=== PATIENT | female | born 1975 | race Caucasian/White ===

== ENCOUNTER 2017-07-30 17:22 | Observation (INO) ==
[2017-07-30] MEDS ORDERED: MORPHINE SULFATE 4 MG/ML SYRG IM ONE (18:06)
[2017-07-30] MEDS ORDERED: MORPHINE SULFATE 4 MG/ML SYRG ONE (18:08)
[2017-07-30 18:23] LABS: Hematocrit 47.6 % (37.0-47.0); Hemoglobin 15.5 gm/dL (12.5-16.0); Mean Cell Volume 94.4 fl (78-100); Mean Corpuscular Hemoglobin 30.8 pg (27-31); Mean Corpuscular Hgb Conc 32.6 g/dl (32-36); Mean Platelet Volume 9.8 fl (6.0-9.5); Neutrophil # 5.7 K/mm3 (1.3-6.0); Neutrophil % 51.3 % (42-75.0); Platelet Count 282 K/mm3 (150-450); Red Blood Count 5.04 M/mm3 (4.2-5.4); Red Cell Distribution Width 12.8 % (11.5-14.0)
[2017-07-30 18:34] LABS: Albumin * 3.4 gm/dl (3.4-5.0); Anion Gap 13.2 mmol/L (6.8-13.8); BUN/Creatinine Ratio 14.9 (9.0-21.6); Bilirubin, Total 0.4 mg/dL (0.0-1.1); Ca. Corrected For Albumin 9.1 mg/dL (8.4-10.2); Calcium * 8.9 mg/dL (7.9-10.9); Carbon Dioxide 28.7 mmol/L (24-32.6); Potassium 3.9 mmol/L (3.4-4.6); Total Protein 7.8 gm/dL (6.2-8.2)
[2017-07-30] MEDS ORDERED: VANCOMYCIN HCL 1 GM in DEXTROSE 5 % IN WATER 250 ML IV ONE ×2 (19:04)
--- NOTE | 2017-07-30 19:10 | ERNOTE ---
Lower Extremity HPI - Narrative Date of Service: 07/30/17 - General Lower Extremities Pain: foot: left Time Seen by Provider: 07/30/17 17:51 Source: patient Exam Limitations: no limitations - Immun/Allergies/Home Medications Immunizations: IMMUNIZATION HX Immunizations Up to Date Yes Allergies/Adverse Reactions: Allergies Allergy/AdvReac Type Severity Reaction Status Date / Time penicillin V Allergy Verified 07/30/17 17:43 promethazine [From Phenergan] Allergy Verified 07/30/17 17:43 Home Medications: HOME MEDICATIONS Esomeprazole Magnesium [Nexium] 40 mg PO DAILY 07/30/17 [Last Taken Unknown] - History of Present Illness Narrative: Patient presents to the ED with left foot pain and redness. 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 She has taken steroids in the past for this but has not taken any for some time. When this happens she gets bad cellulitis and with the increased pain and redness she feels it is infected. She tells me she normally gets admitted and needs Vancomycin as nothing else works. She thinks she may have been feverish. Occurred: other - 3 days Location of Incident: other - no injury Method of Injury: Reports: no apparent injury Loss of Consciousness: Reports: no loss of consciousness Modifying Factors - (Improves): Reports: other - nothing Modifying Factors - (Worsens): Reports: other - weight bearing Associated Symptoms: Denies: weakness Other Injuries: Reports: none Subsequent Symptoms: Denies: motor loss Prior Treament: Reports: similar symptoms before. Denies: recently seen Review of Systems - Review of Systems Constitutional: Present: chills Respiratory: Absent: shortness of breath Cardiology: Absent: chest pain Gastrointestinal/Abdominal: Absent: abdominal pain Skin: Present: no symptoms reported All Other Systems: All systems neg except as marked - Patient's Past Medical History Patient History - Medical: Arthritis, Bipolar, GERD Patient History - Cardiac/Respiratory: No pertinent hx Patient History - Cancer: No Hx of Cancer Patient History - Surgical Procedures: , T & A Patient History - Other: None - Social History Living Situations: home Psych History: Hx of Bipolar Disorder Alcohol Use: none Drug Use: none - Immunizations Immunizations Up to Date: Yes Physical Exam - Physical Exam General Appearance: Present: alert, no apparent distress Head Exam: Present: normal inspection Eye Exam: Normal inspection: bilateral, PERRL: bilateral Ears, Nose, Throat: Present: normal ENT inspection Neck: Present: normal inspection Respiratory: Present: no respiratory distress, normal breath sounds, lungs clear Cardiovascular/Chest: Present: regular rate, rhythm, normal peripheral pulses Gastrointestinal/Abdominal: Present: normal bowel sounds, nontender Extremity Exam: Present: normal range of motion, other - No DVT findings Neurological Exam: Present: alert, no motor/sensory deficits Skin Exam: Present: other - apparent pustular psoriasis left foot with secondary cellulitis. No suggestion of Nec Fasc clinically. No abscess to drain. There is warmth to the midfoot but the redness is mostly around the toes and medial foot, warmth extends beyond the area of redness. ED Progress - Results and Orders Patient's Lab Results:: I have reviewed the patient's lab results. - Vital Signs Patient's Vital Signs:: I have reviewed the patient's vital signs. Vital Signs: Vital Signs 07/30/17 07/30/17 17:35 18:10 Temperature 36.1 C L Pulse Rate 91 96 Respiratory 12 20 Rate Blood Pressure 135/70 159/83 O2 Sat by Pulse 97 97 Oximetry - X-Ray X-Ray #1 X-Ray: foot Interpretation: Interp. by me X-ray Comments: No real-time radiology reads. No acute process by my interpretation. - Progress/Reassessment Chief Complaint: Foot Injury/Pain Progress Note-Subjective: 07/30/17 19:30 Patient relates she has always needed to be admitted with Vanco for these events. I disucssed IV Vanco and outpatient management but she was most comfortable with being in the hospital. Given her elevated lactic acid, elevated WBC and elevated blood sugar with her history of infection requiring vanco I feel it is reasonable to place her in obs as the course of her illness is not clear at this time. D/W Rosio who will admit the patient obs and requested HGB A1C which was ordered. Departure Clinical Impression: Pustular psoriasis, Cellulitis, Elevated blood sugar - Departure Disposition: Still a patient Condition: Stable
--- NOTE | 2017-07-30 21:17 | HP ---
Chief Complaint - Chief Complaint Date of Service: 07/30/17 Time of Service: 21:16 Chief Complaint: Left foot pain,Tenderness and erythyma History of Present Illness: 42 years old female adm to the hospital with reports of chills, fever and pain to left foot. Pt stated when she got out her van today and stood on her left feet, it felt like she had many pins sticking her. The sole of her left feet and toes had diffused pustules psoriasis with cellulitis.Her foot with erythema around the toes, medial measuring machine tender and warm to touch, s/s began 3 days ago. 2 years ago she was diagnosed with pustular psoriasis, she was managed with injectable steriods every three months. However its been a year since she took any medications, she no longer have a PCP and has been driving [place] work. pt stated other treatment methods have been tried with exacerbation of pustular psoriasis and only In-pt use of vancomycin have worked for her in the past. Plan of care discussed with pt she verbalized understanding and agrees. - Patient's Past Medical History Patient History - Medical: Anxiety, Arthritis, Bipolar, Depression, Fibromyalgia , GERD, Other - Morbid obesity, PTSD, Patient History - Cardiac/Respiratory: No pertinent hx Patient History - Cancer: No Hx of Cancer Patient History - Surgical Procedures: , T & A Patient History - Other: None LMP (Calendar): 07/14/17 - Family History Father Family History - Medical: Diabetes Type 2 Family History - Cardiac/Respiratory: CVA/Stroke, Myocardial Infarction Family History - Cancer: No pertinent family hx Mother Family History - Medical: Diabetes Type 1 Family History - Cardiac/Respiratory: COPD, Hypertension Family History - Cancer: No pertinent family hx - Social History Living Situations: home Psych History: Psychiatric Hx, Hx of Bipolar Disorder Does anyone smoke in the home?: Yes Smoking Status: Current every day smoker Have you smoked in the past 12 months: Yes Do you dip or chew tobacco: No Patient requests Smoking Cessation Consult: Yes Initiate information on Smoking Cessation: Yes Alcohol Use: none Drug Use: none - Immunizations Immunizations Up to Date: Yes Review Of Systems (GEN) - Review of Systems Generalized/Overall Review: Present: Chills, Fever, Malaise EENTM: Present: No Symptoms Reported Respiratory: Present: No Symptoms Reported Cardiac: Present: No Symptoms Reported Abdominal: Present: No Symptoms Reported Genitourinary: Present: No Symptoms Reported Musculoskeletal: Present: No Symptoms Reported Neurological: Present: Parasthesia Skin: Present: Other - diffused putular psoriasis left foot, cellulitis Endocrine: Present: No Symptoms Reported Immunizations: IMMUNIZATION HX Immunizations Up to Date Yes Allergies/Adverse Reactions: Allergies Allergy/AdvReac Type Severity Reaction Status Date / Time penicillin V Allergy Verified 07/30/17 17:43 promethazine [From Phenergan] Allergy Verified 07/30/17 17:43 Home Medications: HOME MEDICATIONS Esomeprazole Magnesium [Nexium] 40 mg PO DAILY 07/30/17 [Last Taken 07/29/17 2100] metFORMIN HCL [Metformin HCl ER] 500 mg PO DAILY 07/30/17 [Last Taken Unknown] Exam - Exam Vital Signs: Vital Signs - Last Taken Temp 36.6 C 07/30/17 19:42 Pulse 84 07/30/17 19:42 Resp 20 07/30/17 19:42 BP 156/71 07/30/17 19:42 Pulse Ox 95 07/30/17 19:42 Constitutional: Present: Alert, Oriented x3, Cooperative, Well developed, No distress, Morbidly obese ENT Exam: Present: hearing grossly normal Eye Exam: bilateral eye: normal inspection Neck: Present: non-tender, full range of motion, supple Back Exam: Present: normal inspection Breasts: Present: Exam deferred Respiratory: Present: chest non-tender, lungs clear, no respiratory distress, decreased breath sounds Cardiovascular/Chest: Present: normal peripheral pulses, regular rate, rhythm, no chest tenderness, no edema, no gallop Peripheral Pulses: dorsalis-pedis (R): 2+, dorsalis-pedis (L): 2+ Abdomen: Present: Normal bowel sounds, soft, nontender, nondistended /Rectal: Present: Exam deferred Extremity: Present: normal range of motion, non-tender, normal inspection, no pedal edema Skin Exam: Present: warm/dry, other - putular psoriasis, toes and medial foot cellulitis Neurologic: Present: alert, oriented x 3 Appearance: Present: appropriate appearance Eye contact: Present: cooperative, good eye contact Thoughts: Present: normal thought pattern, no apparent hallucination Diagnostic Studies: Laboratory Results WBC 11.0 K/mm3 (4.0-10.5) H 07/30/17 18: RBC 5.04 M/mm3 (4.2-5.4) 07/30/17 18: Hgb 15.5 gm/dL (12.5-16.0) 07/30/17 18: Hct 47.6 % (37.0-47.0) H 07/30/17 18: MCV 94.4 fl (78-100) 07/30/17 18: MCH 30.8 pg (27-31) 07/30/17: MCHC 32.6 g/dl (32-36) 07/30/17: RDW 12.8 % (11.5-14.0) 07/30/17: Plt Count 282 K/mm3 (150-450) 07/30/17: MPV 9.8 fl (6.0-9.5) H 07/30/17 18: Immature Gran % (Auto) 0.40 % (0.001-0.429) 07/30/17: Immature Gran # (Auto) 0.04 K/mm3 (0.000-0.0310) H 07/30/17 18: Neutrophils % 51.3 % (42-75.0) 07/30/17: Lymphocytes % 40.6 % (20-51) 07/30/17: Monocytes % 5.1 % (0.0-9) 07/30/17: Eosinophils % 1.9 % (0.0-3.0) 07/30/17: Basophils % 0.7 % (0.0-1.0) 07/30/17: Nucleated RBC % 0.0 k/mm3 (0-1) 07/30/17 18: Neutrophils # 5.7 K/mm3 (1.3-6.0) 07/30/17 18: Lymphocytes # 4.47 k/mm3 (1.5-3.5) H 07/30/17 18: Monocytes # 0.6 k/mm3 (0.0-1.0) 07/30/17 18: Eosinophils # 0.2 k/mm3 (0.0-0.7) 07/30/17: Absolute Basophils 0.1 k/mm3 (0.0-0.1) 07/30/17 18: Sodium 139 mmol/L (132-142) 07/30/17 18: Plasma Sodium 141 mmol/L (130-142) 07/30/17 18: Potassium 3.9 mmol/L (3.4-4.6) 07/30/17 18: Chloride 101 mmol/L (97-106) 07/30/17: Carbon Dioxide 28.7 mmol/L (24-32.6) 07/30/17: Anion Gap 13.2 mmol/L (6.8-13.8) 07/30/17 18: BUN 10 mg/dL (3-23) 07/30/17: Creatinine 0.67 mg/dL (0.4-1.4) 07/30/17: Est GFR (Non-Af Amer) 103 mL/min (60-130) 07/30/17 BUN/Creatinine Ratio 14.9 (9.0-21.6) 07/30/17: Random Glucose 226 mg/dL (70-110) H 07/30/17: Mean Blood Glucose 214 mg/dL 07/30/17 18: Hemoglobin A1c 9.0 % (4.00-6.0) H 07/30/17: Lactic Acid, Venous 2.3 mmol/L (0.4-1.9) H* 07/30/17: Calcium 8.9 mg/dL (7.9-10.9) 07/30/17: Calcium Adj for Albumin 9.1 mg/dL (8.4-10.2) 07/30/17: Total Bilirubin 0.4 mg/dL (0.0-1.1) 07/30/17 18: AST 29 U/L (0-48) 07/30/17 18: ALT 33 U/L (19-67) 07/30/17 18: Alkaline Phosphatase 146 U/L (50-170) 07/30/17 18: Total Protein 7.8 gm/dL (6.2-8.2) 07/30/17: Albumin 3.4 gm/dl (3.4-5.0) 04/12/18 18:22 X-Ray Foot: No acute fracture Assessment/Plan - Narrative Narrative: Pustular psoriasis- eruption is triggered due to withdrawal of systemic steroids Pt stated she have not been taking injectable steroid every 3 months as prescribed for 1 year. Wash foot with saline and keep saline soak gauze between toes Continue with IVF and vancomycin, pharmacy to dose. Blood culture and wound culture pending UA, ESR, CRP pending Prednisone oral and topical hydrocortisone Cellulitis Plan same as #1 Hyperglycemia On adm Blood Glucose >200mg/dl pt stated she is suppose to be taking metformin ER 500mg daily, haven't taken medication for a year. Consistent carb diet Acc-check and low dose Sliding scale insulin A1C 9.0 Chronic conditions Anxiety Bipolar smoker- nicotine patches PTSD Arthritis Code status: Full VTE ppx: SCD and ambulate GI ppx: Nexium Time 40 minutes and case discussed with Dr. Graves - Assessment/Plan (1) Diabetes Problem: Chronic Qualifiers: Diabetes mellitus type: drug or chemical induced (2) Cellulitis Problem: Acute Qualifiers: Site of cellulitis: extremity Site of cellulitis of extremity: lower extremity Laterality: left Qualified Code(s): L03.116 - Cellulitis of left lower limb (3) Elevated blood sugar Problem: Acute (4) Pustular psoriasis Problem: Acute (5) GERD (gastroesophageal reflux disease) Problem: Chronic Qualifiers: Esophagitis presence: without esophagitis Qualified Code(s): K21.9 - Gastro -esophageal reflux disease without esophagitis (6) Bipolar 1 disorder Problem: Chronic (7) Morbid obesity with BMI of 60.0-69.9, adult Problem: Chronic (8) Anxiety Problem: Chronic (9) PTSD (post-traumatic stress disorder) Problem: Chronic
[2017-07-30] MEDS: NORMAL SALINE 1,000 ML IV PRN (22:07)
[2017-07-30] MEDS: ACETAMINOPHEN 500 MG TABLET PO PRN (22:16)
[2017-07-30] MEDS ORDERED: NICOTINE 14 MG PATC TD SCH (22:30)
[2017-07-30] MEDS ORDERED: INSULIN LISPRO 100 UNITS/ML VIAL ONE (22:57)
[2017-07-30] MEDS: INSULIN LISPRO 100 UNITS/ML VIAL SC SCH (23:00)
[2017-07-30] MEDS ORDERED: VANCOMYCIN HCL 1 GM in DEXTROSE 5 % IN WATER 250 ML IV SCH ×2 (23:45)
[2017-07-30] MEDS ORDERED: METHYLPREDNISOLONE SOD SUCC/PF 125 MG/2 ML VIAL IV ONE (23:53)
[2017-07-31] MEDS ORDERED: VANCOMYCIN HCL 1 GM in NORMAL SALINE 250 ML IV ONE (01:00)
[2017-07-31] MEDS: HYDROCORTISONE 30 APPL TUBE TP SCH ×3 (01:25→13:10)
[2017-07-31] MEDS: METHYLPREDNISOLONE SOD SUCC 80 MG in WATER FOR INJ.,BACTERIOSTATIC 0 ML IV SCH ×2 (05:14→11:54)
[2017-07-31 05:35] LABS: Hematocrit 47.9 % (37.0-47.0); Hemoglobin 15.2 gm/dL (12.5-16.0); Mean Corpuscular Hemoglobin 30.5 pg (27-31); Mean Corpuscular Hgb Conc 31.7 g/dl (32-36); Mean Platelet Volume 10.5 fl (6.0-9.5); Neutrophil # 5.8 K/mm3 (1.3-6.0); Neutrophil % 72.4 % (42-75.0); Platelet Count 290 K/mm3 (150-450); Red Blood Count 4.99 M/mm3 (4.2-5.4); Red Cell Distribution Width 12.9 % (11.5-14.0)
[2017-07-31 05:56] LABS: Urine Bilirubin Negative (NEGATIVE); Urine Blood Negative /ul (NEGATIVE); Urine Ketone Negative (NEGATIVE); Urine Nitrite Negative (NEGATIVE); Urine Protein Negative (NEGATIVE); Urine Urobilinogen Normal (NORMAL)
[2017-07-31 06:01] LABS: Urine Appearance Clear (CLEAR); Urine Color Yellow
[2017-07-31 06:02] LABS: Urine Bacteria 1+; Urine RBC 0-5 /hpf (0-5); Urine WBC 0-5 /hpf (0-5)
--- NOTE | 2017-07-31 06:34 | PN ---
Subjective - Date and Time Seen Date: 07/31/17 Time: 06:25 Subjective Narrative: patient was seen this morning stated her left foot feels like she has a millions pins sticking her. However she feels a little better than she did upon adm. Her left foot feels much better when washed in cool normal saline and hydrocortisone cream applied.Over night she tolerated solumedrol and IV antbx. Objective - Review of Systems Generalized/Overall Review: Reports: No Symptoms Reported EENTM: Reports: No Symptoms Reported Respiratory: Reports: No Symptoms Reported Cardiac: Reports: No Symptoms Reported Abdominal: Reports: No Symptoms Reported Genitourinary Symptoms: Reports: No Symptoms Reported Musculoskeletal Complaints: Reports: No Symptoms Reported Neurological: Reports: Parasthesia - left foot Skin: Reports: Other - cellulitis and pustular psoriasis Endocrine: Reports: No Symptoms Reported - Vitals Vitals: Last Vital Signs Temp 36.9 C 07/31/17 05:00 Pulse 81 07/31/17 05:00 Resp 18 07/31/17 05:00 BP 144/80 07/31/17 05:00 Pulse Ox 94 07/31/17 05:00 - Abnormal Lab Findings Abnormal Lab Findings: Abnormal Lab Results 07/30/17 07/31/17 07/31/17 Range/Units 21:10 04:54 05:00 Hct 47.9 H (37.0-47.0) % MCHC 31.7 L (32-36) g/dl MPV 10.5 H (6.0-9.5) fl Immature Gran % (Auto) 0.50 H (0.001-0.429) % Immature Gran # (Auto) 0.04 H (0.000-0.0310) K/mm3 Lactic Acid, Venous 2.0 H (0.4-1.9) mmol/L Urine Glucose (UA) >=1000 H (NEGATIVE) mg/dL Ur Epithelial Cells 10-25 H (0-5) /hpf Urine Bacteria 1+ H (NONE) - Exam Constitutional: Present: Alert, Oriented x3, Cooperative, No distress, Morbidly obese ENT Exam: Present: hearing grossly normal Neck: Present: full range of motion Respiratory: Present: chest non-tender, lungs clear, normal breath sounds, decreased breath sounds Cardiovascular/Chest: Present: normal peripheral pulses, regular rate, rhythm, no chest tenderness, no edema Abdomen: Present: Normal bowel sounds, soft, nontender, nondistended /Rectal: Present: Exam deferred Extremity: Present: normal range of motion, non-tender, no pedal edema, no calf tenderness Skin Exam: Present: other - plantar pustular psoriasis and cellulitis around toes and medial left foot. Neurologic: Present: normal mood/affect, oriented x 3 Appearance: Present: appropriate appearance, appropriate insight Eye contact: Present: cooperative, good eye contact Thoughts: Present: normal thought pattern Assessment/Plan Plan Narrative: Hyperglycemia- likely due to solumedrol use and vancomycin mixed in 5% dextrose with water Blood glucose >300mg/dl over night and insulin coverage given pt stated she is suppose to be taking metformin ER 500mg Q hS, haven't taken medication for a year. Consistent carb diet Acc-check and low dose Sliding scale insulin A1C 9.0 Pustular psoriasis- eruption is triggered due to withdrawal of systemic steroids Pt stated she have not been taking injectable steroid every 3 months as prescribed for 1 year. Wash foot with saline and keep saline soak gauze between toes Continue with IVF and vancomycin, pharmacy to dose. Blood culture and wound culture pending UA pending , ESR and CRP elevated likely due to pustular psoriasis eruption. Continue with Solumedrol and topical hydrocortisone Cellulitis Plan same as #2 Chronic conditions- stable Anxiety Bipolar smoker- nicotine patches PTSD Arthritis Code status: Full VTE ppx: SCD and ambulate GI ppx: Nexium Time 20 minutes and case discussed with Dr. Graves - Problems/Diagnosis (1) Diabetes Problem: Chronic Qualifiers: Diabetes mellitus type: drug or chemical induced (2) Cellulitis Problem: Acute Qualifiers: Site of cellulitis: extremity Site of cellulitis of extremity: lower extremity Laterality: left Qualified Code(s): L03.116 - Cellulitis of left lower limb (3) Elevated blood sugar Problem: Acute (4) Pustular psoriasis Problem: Acute (5) GERD (gastroesophageal reflux disease) Problem: Chronic Qualifiers: Esophagitis presence: without esophagitis Qualified Code(s): K21.9 - Gastro -esophageal reflux disease without esophagitis (6) Bipolar 1 disorder Problem: Chronic (7) Morbid obesity with BMI of 60.0-69.9, adult Problem: Chronic (8) Anxiety Problem: Chronic (9) PTSD (post-traumatic stress disorder) Problem: Chronic
[2017-07-31] MEDS ORDERED: PANTOPRAZOLE SODIUM 40 MG TABLET.EC PO SCH (07:00)
[2017-07-31] MEDS: INSULIN LISPRO 100 UNITS/ML VIAL SC SCH ×2 (07:03→11:56)
[2017-07-31] MEDS: ACETAMINOPHEN 500 MG TABLET PO PRN (09:43)
[2017-07-31] MEDS ORDERED: VANCOMYCIN HCL 2 GM in NORMAL SALINE 500 ML IV SCH (13:00)
[2017-07-31] MEDS: NORMAL SALINE 1,000 ML IV PRN (13:08)
--- NOTE | 2017-07-31 15:32 | DS ---
(1) Dyshidrotic eczema Diagnosis(s): flare up Problem: Chronic (2) T2DM (type 2 diabetes mellitus) Diagnosis(s): A1c -9.4 Problem: Chronic (3) Morbid obesity Diagnosis(s): BMI-62.7. Problem: Chronic (4) Chronic GERD Problem: Chronic Description of Stay: DATA FOR ADMISSION: 07/30/17. DATE OF DISCHARGE: 07/31/17. DIAGNOSTICS: NONE. DISCHARGE SUMMARY: Abel Gray is a 42-year-old WF with a H/O morbid obesity [BMI 62.0], T2 DM, GERD, tobacco abuse came in because of right foot pain, warmth and redness for the last 2-3 days. Patient thought she had a diagnosis of pustular psoriasis. Records from her pipe fitter maintenance Dr. Jake Franklin D.O. [place], [place] stated that she has dyshidrotic eczema given recurrent nature and lack of pustules. Patient was hospitalized with cellulitis of the left foot and was at a [facility] in 2016 at which time she was treated with vancomycin. Patient was given vancomycin IV and Solu-Medrol in the hospital as she informed the physicians that her flare had improved on these medications. patient feels she has significantly improved with the above treatment. A1c was 9.0[average 214 mg/dL]. Patient had not seen her regular physician/ pipe fitter maintenance for more than a year. She also had not taken metformin ER for more than a year. Discussed with patient regarding increasing her metformin gradually, obtaining sleep studies, foot care. Patient is being discharged in a stable condition. A total of 35 minutes was spent with the patient 1. Discussing test results, plan of care and patient education. 2. Reconciliation of medications, discharge plans, preparing and dictating discharge summary. Procedures Performed: none Results and Findings: Laboratory Tests 07/30/17 07/31/17 18:22 04:54 WBC 11.0 H 8.0 D Hgb 15.5 15.2 Hct 47.6 H 47.9 H Plt Count 282 290 07/30/17 18:22 ESR 34 H Mean Blood Glucose 214 Hemoglobin A1c 9.0 H C-Reactive Prot, Quant 3.4 H 07/30/17 18:22 Plasma Sodium 141 Potassium 3.9 Chloride 101 Carbon Dioxide 28.7 BUN 10 Creatinine 0.67 Est GFR (Non-Af Amer) 103 Random Glucose 226 H Calcium Adj for Albumin 9.1 Total Bilirubin 0.4 AST 29 ALT 33 Alkaline Phosphatase 146 Total Protein 7.8 Albumin 3.4 X-ray LT foot: 07/30/17. 1. No acute fracture. 2. Small plantar calcaneal enthesophyte. Discharge Location: Home Disposition: Home self-care Condition: Undetermined Discharge Diet: Consistent carbs, Low fat/chol, High Fiber Problem Oriented Discharge Instructions to Patient/Family: Diabetes and Foot Care, Psoriasis, [id number] Additional Patient Instructions (free text): PATIENT TO BE INFORMED THAT SHE HAS DYSHIDROTIC ECZEMA. NEED TO USE HEAVY MOISTURIZERS AND NEED TO COVER WITH SARAN WRAP. HAS POORLY CONTROLLED DM. MAY REQUIRE SLEEP STUDIES. NEED TO FOLLOW-UP WITH A PHYSICIAN. PATIENT ENCOURAGED TO LOSE WEIGHT FOR CONTROL OF DIABETES. NEW MEDICATIONS/ TIMINGS. 1. Vitamin D3 5000 units daily with food[OTC medication] for overall health/ bones. 2. Metformin ER 500 mg to be gradually increased to 2 tablets twice a day with food. 3. Take Nexium 30 minutes before breakfast. No follow-up appointment has been made as patient states that [place] Prescriptions (Any new or edited meds): Cholecalciferol (Vitamin D3) [Vitamin D3] 5,000 unit PO DAILY #100 tablet metFORMIN HCL [Metformin HCl ER] 1,000 mg PO BIDWM #120 tab.er.24h Complete Home Medications List: Complete Home Medication List: Esomeprazole Magnesium [Nexium] 40 mg PO DAILY 07/30/17 Cholecalciferol (Vitamin D3) [Vitamin D3] 5,000 unit PO DAILY #100 tablet metFORMIN HCL [Metformin HCl ER] 1,000 mg PO BIDWM #120 tab.er.24h 07/31/17
[2017-07-31 18:26] VITALS: BP 126/74
[2017-08-01] MEDS ORDERED: VANCOMYCIN HCL LEVEL XX ONE (12:30)
== END 2017-07-31 17:40 | disposition home or self-care (01) ==
LOC: ER 17:22 → MS 19:33
PROVIDERS: ADMIT Nurse Practitioner; ATTEND Internal Medicine
DX: E66.01 Morbid (severe) obesity due to excess calories; F17.210 Nicotine dependence, cigarettes, uncomplicated; Z68.44 Body mass index [BMI] 60.0-69.9, adult; B95.1 Streptococcus, group B, as the cause of diseases classified elsewhere; L40.1 Generalized pustular psoriasis; F31.9 Bipolar disorder, unspecified; K21.9 Gastro-esophageal reflux disease without esophagitis; F43.10 Post-traumatic stress disorder, unspecified; L30.1 Dyshidrosis [pompholyx]; E11.65 Type 2 diabetes mellitus with hyperglycemia; L03.115 Cellulitis of right lower limb
CPT/HCPCS: 36415; 73630; 80053; 81001; 83036; 83605; 85025; 85652; 86140; 87040; 87070; 87077; 87186; 96365; 96366; 96372; 96375; 96376; 99284; G0378